=== PATIENT | female | born 1955 | race Caucasian/White ===

== ENCOUNTER → 2018-11-04 | Outpatient (CLI) | payer OTHER ==
--- NOTE | 2018-11-05 11:14 | MM ---
Reason for exam: screening (asymptomatic). Last mammogram was performed 15 years and 11 months ago. History: Patient is postmenopausal. Family history of breast cancer in mother. Took hormonal contraceptives for 6 months beginning at age 27. Physical Findings: A clinical breast exam by your physician is recommended on an annual basis and results should be correlated with mammographic findings. MG Screening Mammo w CAD Bilateral CC and MLO view(s) were taken. No prior studies available for comparison. There are scattered fibroglandular densities. There is no discrete abnormality. No significant changes when compared with prior studies. ASSESSMENT: Negative, BI-RAD 1 RECOMMENDATION: Routine screening mammogram of both breasts in 1 year.
== END | disposition home or self-care (01) ==
LOC: RADMAMWWP 08:34
PROVIDERS: ATTEND Family Medicine
DX: Z12.31 Encounter for screening mammogram for malignant neoplasm of breast (principal)
CPT/HCPCS: 77067